=== PATIENT | male | born 1965 | race Hispanic/Latino ===

== ENCOUNTER 2021-09-03 09:24 | Emergency (ER) | payer OTHER ==
[~2021-09-03] VITALS: Ht 170.2 cm; Wt 90.7 kg
[2021-09-03] MEDS ORDERED: NA BORATE/BORIC AC/H2O/NACL 120 ML OPHTH IRRIG SOLN ONE (09:35)
[2021-09-03] MEDS ORDERED: TETRACAINE HCL 0.5% 4 ML OPHTH SOLN ONE (09:36)
[2021-09-03] MEDS ORDERED: FLUORESCEIN SODIUM 1 STRIP STRIP ONE (09:36)
[2021-09-03] MEDS ORDERED: IBUPROFEN 600 MG TABLET PO ONE (12:00)
[2021-09-03] MEDS ORDERED: ERYTHROMYCIN BASE 0.5% OPHTH OINT 1 GM TUBE OS SCH (12:00)
[2021-09-03] MEDS ORDERED: HYDROCODONE/ACETAMINOPHEN 5/325 MG TAB PO ONE (12:00)
[2021-09-03] MEDS ORDERED: ACET-2079 PO (12:22)
[2021-09-03] MEDS ORDERED: IBUP-2070 PO (12:22)
[2021-09-03] MEDS ORDERED: ERYT1OIN7 OP (12:22)
[2021-09-03 12:38] VITALS: BP 131/80
== END 2021-09-03 12:38 | disposition home or self-care (01) ==
LOC: EDH 09:24
DX: T53.5X1A Toxic effect of chlorofluorocarbons, accidental (unintentional), initial encounter (principal); T26.62XA Corrosion of cornea and conjunctival sac, left eye, initial encounter; Y93.89 Activity, other specified; Y92.89 Other specified places as the place of occurrence of the external cause; Y99.8 Other external cause status; Z98.890 Other specified postprocedural states